=== PATIENT | male | born 1990 | race Caucasian/White ===

== ENCOUNTER 2017-11-01 21:16 | Emergency (ER) | payer OTHER ==
[2017-11-01 21:29] VITALS: RESP 18
[2017-11-01] MEDS ORDERED: ONDANSETRON 4 MG/2 ML VIAL IVP STA (21:44)
[2017-11-01] MEDS ORDERED: SODIUM CHLORIDE 0.9% 500 ML IV STA (21:44)
--- NOTE | 2017-11-01 21:50 | ED ---
Nausea/Vomiting/Diarrhea HPI - General Chief complaint: Nausea/Vomiting/Diarrhea Stated complaint: vomting/diarrhea Time Seen by Provider: 11/01/17 21:27 Source: patient Mode of arrival: ambulatory Limitations: no limitations - History of Present Illness MD complaint: nausea, vomiting, diarrhea -: hour(s) (This patient is a 27 year old man who presents with approximately 9 hours of nausea, vomiting, and diarrhea. The patient states that he was in his usual state of health yesterday and awoke feeling well. He does note that his had the onset of identical symptoms around 8 this morning. The patient did go to work but was called home by his , and then this afternoon started having similar symptoms to her. He denies fever or chills. He is not having abdominal pain area he has not noted any blood or coffee-ground material with the vomiting or with the bowel movements. He does state that he is feeling a touch lightheaded if he stands rapidly.) Description of Vomiting: food contents Description of Diarrhea: water Associated Abdominal Pain: No Improves with: none Worsens with: none Associated Symptoms: nausea/vomiting - Related Data Home Medications Medication Instructions Recorded Confirmed Acetaminophen [Tylenol] 650 mg PO Q6HR PRN 11/01/17 11/01/17 Divalproex [Depakote] 500 mg PO BID 11/01/17 11/01/17 Previous Rx's Medication Instructions Recorded Ondansetron Odt [Zofran ODT] 4 mg PO Q8HR PRN #10 tab 11/01/17 Allergies Allergy/AdvReac Type Severity Reaction Status Date / Time No Known Allergies Allergy Verified 11/01/17 21:50 Review of Systems ROS Statement: Those systems with pertinent positive or pertinent negative responses have been documented in the HPI. ROS Other: All systems not noted in ROS Statement are negative. Constitutional: Denies: fever, chills, weakness Respiratory: Denies: cough, dyspnea Cardiovascular: Denies: chest pain, palpitations, edema Gastrointestinal: Reports: nausea, vomiting, diarrhea. Denies: abdominal pain, constipation, melena, hematochezia Genitourinary: Denies: dysuria, hematuria Musculoskeletal: Denies: back pain Skin: Denies: rash Neurological: Denies: headache Past Medical History Past Medical History: Seizure Disorder History of Any Multi-Drug Resistant Organisms: None Reported Past Surgical History: No Surgical Hx Reported Past Psychological History: No Psychological Hx Reported Smoking Status: Never smoker Past Alcohol Use History: Occasional Past Drug Use History: None Reported General Exam Limitations: no limitations General appearance: alert, in no apparent distress Head exam: Present: atraumatic, normocephalic Eye exam: Present: normal appearance. Absent: scleral icterus, conjunctival injection ENT exam: Present: normal oropharynx Respiratory exam: Present: normal lung sounds bilaterally. Absent: respiratory distress, wheezes, rales, rhonchi, stridor Cardiovascular Exam: Present: normal rhythm, tachycardia (Rate is approximately 104 at my exam), normal heart sounds. Absent: systolic murmur, diastolic murmur , rubs, gallop GI/Abdominal exam: Present: soft. Absent: distended, tenderness, guarding, rebound, rigid, mass, pulsatile mass, hernia Extremities exam: Present: normal inspection, normal capillary refill. Absent: pedal edema, calf tenderness Back exam: Present: normal inspection. Absent: CVA tenderness (R), CVA tenderness (L) Skin exam: Present: warm, dry, intact, normal color. Absent: rash Course Vital Signs 11/01/17 11/01/17 11/01/17 21:27 21:53 22:27 Temperature 97.4 F L Pulse Rate 113 H 86 103 H Respiratory 18 18 18 Rate Blood Pressure 140/80 125/71 133/63 O2 Sat by Pulse 95 97 100 Oximetry Medical Decision Making - Lab Data Result diagrams: 11/01/17 21:40 11/01/17 21:40 Lab Results 11/01/17 11/01/17 Range/Units 21:40 21:40 WBC 16.8 H (3.8-10.6) k/uL RBC 6.14 H (4.30-5.90) m/uL Hgb 18.2 H (13.0-17.5) gm/dL Hct 52.8 (39.0-53.0) % MCV 86.0 (80.0-100.0) fL MCH 29.7 (25.0-35.0) pg MCHC 34.5 (31.0-37.0) g/dL RDW 12.1 (11.5-15.5) % Plt Count 237 (150-450) k/uL Neutrophils % 93 % Lymphocytes % 2 % Monocytes % 3 % Eosinophils % 1 % Basophils % 0 % Neutrophils # 15.5 H (1.3-7.7) k/uL Lymphocytes # 0.4 L (1.0-4.8) k/uL Monocytes # 0.5 (0-1.0) k/uL Eosinophils # 0.2 (0-0.7) k/uL Basophils # 0.1 (0-0.2) k/uL Sodium 143 (137-145) mmol/L Potassium 4.2 (3.5-5.1) mmol/L Chloride 106 (98-107) mmol/L Carbon Dioxide 18 L (22-30) mmol/L Anion Gap 19 mmol/L BUN 15 (9-20) mg/dL Creatinine 0.96 (0.66-1.25) mg/dL Est GFR (MDRD) Af Amer >60 (>60 ml/min/1.73 sqM) Est GFR (MDRD) Non-Af >60 (>60 ml/min/1.73 sqM) Glucose 135 H (74-99) mg/dL Calcium 10.6 H (8.4-10.2) mg/dL Total Bilirubin 1.1 (0.2-1.3) mg/dL AST 27 (17-59) U/L ALT 39 (21-72) U/L Alkaline Phosphatase 102 (38-126) U/L Total Protein 8.8 H (6.3-8.2) g/dL Albumin 5.3 H (3.5-5.0) g/dL Amylase 65 (30-110) U/L Lipase 64 (23-300) U/L Disposition Clinical Impression: Gastroenteritis Disposition: HOME SELF-CARE Condition: Good Instructions: Gastroenteritis (ED) Prescriptions: Ondansetron Odt [Zofran ODT] 4 mg PO Q8HR PRN #10 tab PRN Reason: Nausea Referrals: Rosales Grullon Jr, [Primary Care Provider] - 1-2 days
[2017-11-01 22:04] LABS: Basophils # (A) 0.1 k/uL (0-0.2); Basophils % (A) 0 %; Eosinophils # (A) 0.2 k/uL (0-0.7); Eosinophils % (A) 1 %; HCT 52.8 % (39.0-53.0); HGB 18.2 gm/dL (13.0-17.5); Lymphocytes # (A) 0.4 k/uL (1.0-4.8); Lymphocytes % (A) 2 %; MCH 29.7 pg (25.0-35.0); MCHC 34.5 g/dL (31.0-37.0); Mean Platelet Volume 8.8; Monocytes # (A) 0.5 k/uL (0-1.0); Monocytes % (A) 3 %; Neutrophils # (A) 15.5 k/uL (1.3-7.7); Neutrophils % (A) 93 %; Platelet Count 237 k/uL (150-450); RBC 6.14 m/uL (4.30-5.90); RDW 12.1 % (11.5-15.5); WBC 16.8 k/uL (3.8-10.6)
[2017-11-01 22:10] LABS: ALT 39 U/L (21-72); AST 27 U/L (17-59); Albumin 5.3 g/dL (3.5-5.0); Alkaline Phosphatase 102 U/L (38-126); Amylase 65 U/L (30-110); Anion Gap 19 mmol/L; Blood Urea Nitrogen 15 mg/dL (9-20); Calcium 10.6 mg/dL (8.4-10.2); Carbon Dioxide 18 mmol/L (22-30); Chloride 106 mmol/L (98-107); Glucose 135 mg/dL (74-99); Lipase 64 U/L (23-300); Potassium 4.2 mmol/L (3.5-5.1); Sodium 143 mmol/L (137-145); Total Bilirubin 1.1 mg/dL (0.2-1.3); Total Protein 8.8 g/dL (6.3-8.2)
[2017-11-01 22:27] VITALS: BP 133/63; PULSE 103
[2017-11-01 22:47] VITALS: TEMP 98.9
== END 2017-11-01 22:47 | disposition home or self-care (01) ==
LOC: EC 21:16
DX: K52.9 Noninfective gastroenteritis and colitis, unspecified (principal); G40.909 Epilepsy, unspecified, not intractable, without status epilepticus; Z79.899 Other long term (current) drug therapy
CPT/HCPCS: 36415; 80053; 82150; 83690; 85025; 99284; 96374; J2405

== ENCOUNTER 2017-11-27 20:53 | Emergency (ER) | payer OTHER ==
[2017-11-27 20:58] VITALS: BP 135/77; PULSE 98; TEMP 98.9
[2017-11-27 21:17] VITALS: RESP 20
--- NOTE | 2017-11-27 21:25 | ED ---
General Adult HPI - General Chief complaint: Upper Respiratory Infection Stated complaint: cough Time Seen by Provider: 11/27/17 21:01 Source: patient, RN notes reviewed Mode of arrival: ambulatory Limitations: no limitations - History of Present Illness Initial comments: Patient is a 27-year-old male who presents emergency room today with a chief complaint of Congestion over the last 3 days. He does admit that he was at the urgent care yesterday diagnosed with influenza. He states that he's been having increased cough congestion. Patient does admit that several coworkers have been sick with similar. He does admit that he had a fever yesterday fever seems to be better today. He denies any other complaints or symptoms. Patient denies any recent fever, chills, shortness of breath, chest pain, back pain, abdominal pain, nausea or vomiting, numbness or tingling, dysuria or hematuria, constipation or diarrhea, headaches or visual changes, or any other complaints. - Related Data Home Medications Medication Instructions Recorded Confirmed Divalproex [Depakote] 500 mg PO BID 11/01/17 11/01/17 Previous Rx's Medication Instructions Recorded Benzonatate [Tessalon Perles] 100 mg PO TID PRN #20 capsule 11/27/17 Allergies Allergy/AdvReac Type Severity Reaction Status Date / Time No Known Allergies Allergy Verified 11/27/17 20:58 Review of Systems ROS Statement: Those systems with pertinent positive or pertinent negative responses have been documented in the HPI. ROS Other: All systems not noted in ROS Statement are negative. Past Medical History Past Medical History: Seizure Disorder History of Any Multi-Drug Resistant Organisms: None Reported Past Surgical History: No Surgical Hx Reported Past Psychological History: No Psychological Hx Reported Smoking Status: Never smoker Past Alcohol Use History: Occasional Past Drug Use History: None Reported General Exam - General Exam Comments Initial Comments: General: The patient is awake and alert, in no distress, and does not appear acutely ill. Eye: Pupils are equal, round and reactive to light, extra-ocular movements are intact. No nystagmus. There is normal conjunctiva bilaterally. No signs of icterus. Ears, nose, mouth and throat: There are moist mucous membranes and no oral lesions. Mild redness to the posterior pharynx. Uvula midline. Patient swallows without difficult. Neck: The neck is supple, there is no tenderness or JVD. No meningismal signs. Cardiovascular: There is a regular rate and rhythm. No murmur, rub or gallop is appreciated. Respiratory: Lungs are clear to auscultation, respirations are non-labored, breath sounds are equal. No wheezes, stridor, rales, or rhonchi. Musculoskeletal: Normal ROM, no tenderness. Strength 5/5. Sensation intact. Pulses equal bilaterally 2+. Neurological: A&O x 3. CN II-XII intact, There are no obvious motor or sensory deficits. Coordination appears grossly intact. Speech is normal. Skin: Skin is warm and dry and no rashes or lesions are noted. Psychiatric: Cooperative, appropriate mood & affect, normal judgment. Limitations: no limitations Course Vital Signs 11/27/17 11/27/17 20:55 21:16 Temperature 98.9 F Pulse Rate 98 Respiratory 18 20 Rate Blood Pressure 135/77 O2 Sat by Pulse 100 Oximetry Medical Decision Making - Medical Decision Making Chest x-rays negative for any sign of pneumonia. Results were discussed with patient. He'll be given cough medication go home with. Patient was found from DrKathy return to emergency room if symptoms increase worsen. Disposition Clinical Impression: Influenza Disposition: HOME SELF-CARE Condition: Good Instructions: Influenza (ED) Additional Instructions: Please use medication as discussed. Please follow-up with family doctor in the next 2 days of symptoms have not improved. Please return to emergency room if the symptoms increase or worsen or for any other concerns. Prescriptions: Benzonatate [Tessalon Perles] 100 mg PO TID PRN #20 capsule PRN Reason: Cough Referrals: Rosales Grullon Jr, [Primary Care Provider] - 1-2 days Time of Disposition: 21:50
--- NOTE | 2017-11-27 21:30 | XR ---
EXAMINATION TYPE: XR chest 2V DATE OF EXAM: 11/27/2017 COMPARISON: Prior chest x-ray April 29, 2011. HISTORY: Cough. TECHNIQUE: Frontal and lateral views of the chest are obtained. FINDINGS: There is no focal air space opacity, pleural effusion, or pneumothorax seen. The cardiac silhouette size is within normal limits. The osseous structures are intact. IMPRESSION: No suspicious acute pulmonary process. No significant change from prior chest x-ray .
== END 2017-11-27 21:56 | disposition home or self-care (01) ==
LOC: EC 20:53
DX: J11.1 Influenza due to unidentified influenza virus with other respiratory manifestations (principal); G40.909 Epilepsy, unspecified, not intractable, without status epilepticus; Z79.899 Other long term (current) drug therapy
CPT/HCPCS: 71046; 99283

== ENCOUNTER 2019-04-21 02:19 | Emergency (ER) | payer OTHER ==
[2019-04-21 02:52] VITALS: PULSE 88; RESP 18
--- NOTE | 2019-04-21 03:10 | XR ---
EXAM: XR Chest, 2 Views CLINICAL HISTORY: ITS.REASON XR Reason: shortness of breath TECHNIQUE: Frontal and lateral views of the chest. COMPARISON: 11/27/17. FINDINGS: Lungs: Mild basilar opacities, possible atelectasis. No consolidation. Pleural space: No significant pleural effusion or pneumothorax. Heart: Unremarkable. Mediastinum: Unremarkable. Bones/joints: No acute fracture. IMPRESSION: No acute cardiopulmonary process.
--- NOTE | 2019-04-21 03:29 | ED ---
General Adult HPI - General Chief complaint: Upper Respiratory Infection Stated complaint: Cough/MIKHAIL Time Seen by Provider: 04/21/19 03:03 Source: patient Mode of arrival: ambulatory Limitations: no limitations - History of Present Illness Initial comments: Patient is a 28-year-old male presenting to emergency Department with a cough. Patient reports he developed mild sore throat and bilateral rhinorrhea on Wednesday. The symptoms resolved after 2 days. Patient reports earlier today he developed a dry cough followed by 2 episodes of posttussive emesis. Patient denies nausea or diarrhea. Patient denies fever, chills or night sweats. Patient reports the cough is exacerbated when laying supine and alleviated with sitting up. Patient does report mild shortness of breath but denies chest pain, chest tightness or chest palpitations. Patient denies sore throat, rhinorrhea, headache, fever. Patient is a smoker. Patient reports taking Robitussin and benzonate with minimal improvement. Patient denies abdominal or back pain. - Related Data Home Medications Medication Instructions Recorded Confirmed Divalproex [Depakote] 500 mg PO BID 11/01/17 11/01/17 Previous Rx's Medication Instructions Recorded Benzonatate [Tessalon Perles] 100 mg PO TID PRN #20 capsule 11/27/17 Albuterol Nebulized [Ventolin 2.5 mg INHALATION Q4H PRN #25 nebu 04/21/19 Nebulized] Allergies Allergy/AdvReac Type Severity Reaction Status Date / Time No Known Allergies Allergy Verified 11/27/17 20:58 Review of Systems ROS Statement: Those systems with pertinent positive or pertinent negative responses have been documented in the HPI. ROS Other: All systems not noted in ROS Statement are negative. Past Medical History Past Medical History: Seizure Disorder History of Any Multi-Drug Resistant Organisms: None Reported Past Surgical History: No Surgical Hx Reported Past Psychological History: No Psychological Hx Reported Smoking Status: Never smoker Past Alcohol Use History: Occasional Past Drug Use History: None Reported General Exam Limitations: no limitations General appearance: alert, in no apparent distress Head exam: Present: atraumatic, normocephalic, normal inspection Eye exam: Present: normal appearance, PERRL, EOMI Pupils: Present: normal accommodation ENT exam: Present: normal exam, mucous membranes moist, TM's normal bilaterally, normal external ear exam. Absent: normal oropharynx (Mild pharyngeal erythema. No enlarged tonsils or tonsillar exudates.) Neck exam: Present: normal inspection, full ROM. Absent: lymphadenopathy Respiratory exam: Present: normal lung sounds bilaterally. Absent: respiratory distress, wheezes, rales, rhonchi, stridor, chest wall tenderness Cardiovascular Exam: Present: regular rate, normal rhythm, normal heart sounds Extremities exam: Present: normal inspection, full ROM Back exam: Present: normal inspection, full ROM Neurological exam: Present: alert, oriented X3 Psychiatric exam: Present: normal affect, normal mood Skin exam: Present: warm, intact, normal color Course Vital Signs 04/21/19 02:49 Temperature 98.1 F Pulse Rate 88 Respiratory 18 Rate Blood Pressure 136/76 O2 Sat by Pulse 99 Oximetry Medical Decision Making - Medical Decision Making Patient is a 28-year-old male presenting to emergency Department for a cough. Chest x-ray is negative for acute cardio pulmonary pathology. Patient is afebrile. Based on history and physical examination I suspect the patient to develop acute bronchitis. Patient will be discharged with azithromycin based on watch and wait basis. Patient advised to take the medication if the symptoms do not resolve in 3 days. Patient will also be discharged with albuterol. She advised to follow-up with primary care. Strict return parameters were thoroughly discussed with patient who is understanding and agreeable. Case discussed physician. Disposition Clinical Impression: Bronchitis Disposition: HOME SELF-CARE Condition: Stable Instructions (If sedation given, give patient instructions): Upper Respiratory Infection (ED) Additional Instructions: Please take prescribed medication as directed. Please follow up primary care. Please return to emergency department if symptoms worsen. Is patient prescribed a controlled substance at d/c from ED?: No Referrals: Rosales Grullon Jr, DO [Primary Care Provider] - 1-2 days Time of Disposition: 03:31
[2019-04-21] MEDS ORDERED: DEXAMETHASONE SOD PHOSPHATE 4 MG/ML 1 ML VIAL IM STA (03:32)
[2019-04-21 04:15] VITALS: BP 136/80; TEMP 98.8
== END 2019-04-21 04:14 | disposition home or self-care (01) ==
LOC: EC 02:19
DX: J40 Bronchitis, not specified as acute or chronic (principal); G40.909 Epilepsy, unspecified, not intractable, without status epilepticus; F17.200 Nicotine dependence, unspecified, uncomplicated; Z79.899 Other long term (current) drug therapy
CPT/HCPCS: 71046; 99284; 96372; J1100

== ENCOUNTER 2024-04-27 17:43 | Emergency (ER) | payer OTHER ==
[2024-04-27 17:54] VITALS: TEMP 98.2
--- NOTE | 2024-04-27 18:32 | ED ---
Wound/Laceration HPI - General Chief Complaint: Wound/Laceration Stated Complaint: left hand injury Time Seen by Provider: 04/27/24 18:28 Source: patient, RN notes reviewed Mode of arrival: ambulatory Limitations: no limitations - History of Present Illness Initial Comments: 33-year-old male presenting with left third and fourth digit lacerations 1 hour ago. Patient states he accidentally cut himself with a hedgetrimmer. Denies any injuries. Last tetanus unknown. Denies blood thinners. - Related Data Home Medications Medication Instructions Recorded Confirmed Divalproex [Depakote] 500 mg PO BID 11/01/17 11/01/17 Previous Rx's Medication Instructions Recorded Benzonatate [Tessalon Perles] 100 mg PO TID PRN #20 capsule 11/27/17 Albuterol Nebulized [Ventolin 2.5 mg INHALATION Q4H PRN #25 nebu 04/21/19 Nebulized] Azithromycin [Zithromax Z-pack (6 0 mg PO DIRECTED #1 pack 04/21/19 tabs)] Cephalexin [Keflex] 500 mg PO Q12HR 5 Days #10 cap 04/27/24 Allergies Allergy/AdvReac Type Severity Reaction Status Date / Time No Known Allergies Allergy Verified 11/27/17 20:58 Review of Systems ROS Statement: Those systems with pertinent positive or pertinent negative responses have been documented in the HPI. ROS Other: All systems not noted in ROS Statement are negative. Past Medical History Past Medical History: Seizure Disorder History of Any Multi-Drug Resistant Organisms: None Reported Past Surgical History: No Surgical Hx Reported Past Psychological History: No Psychological Hx Reported Smoking Status: Former smoker Past Alcohol Use History: Occasional Past Drug Use History: None Reported General Exam Limitations: no limitations General appearance: alert, in no apparent distress Head exam: Present: atraumatic, normocephalic, normal inspection Left Forearm Wrist exam: Present: normal inspection, full ROM. Absent: tenderness, swelling Hand Wrist exam: Present: full ROM, tenderness (Mild tenderness to distal aspect of third digit), laceration (4 cm curved laceration present on distal aspect of third digit with minimal active bleeding, 2 cm superficial laceration present on distal aspect of fourth digit with no active bleeding). Absent: normal inspection, deformity Vascular: Present: normal capillary refill, radial pulse (Sensation intact in all digits). Absent: vascular compromise Neurological exam: Present: alert, oriented X3 Psychiatric exam: Present: normal affect, normal mood Skin exam: Present: warm, dry, intact, normal color. Absent: rash Course Vital Signs 04/27/24 17:52 Temperature 98.2 F Pulse Rate 86 Respiratory 16 Rate Blood Pressure 150/84 O2 Sat by Pulse 98 Oximetry Procedures - Laceration Laceration #1 Consent Obtained: verbal consent Indication: laceration Site: hand Size (cm): 4 Description: flap Depth: simple, single layer Anesthetic Used: lidocaine 1%, without epi Anesthesia Technique: local infiltration Amount (mls): 3 Pre-repair: wound explored, irrigated extensively, deep structures intact Type of Sutures: nylon Size of Sutures: 4-0 Number of Sutures: 4 Technique: simple, interrupted Patient Tolerated Procedure: well, no complications Additional Comments: Neurovascularly intact status postprocedure Laceration #2 Consent Obtained: verbal consent Indication: laceration Site: hand Size (cm): 2 Description: linear Depth: simple, single layer Pre-repair: wound explored, irrigated extensively, deep structures intact Patient Tolerated Procedure: well, no complications Additional Comments: Skin adhesive applied and hemostasis achieved. Neurovascularly intact status postprocedure Medical Decision Making - Medical Decision Making Was pt. sent in by a medical professional or institution (, PA, UTILIZATION MANAGER, urgent care, hospital, or custodial...) When possible be specific @ -No Did you speak to anyone other than the patient for history (EMS, parent, family, police, friend...)? What history was obtained from this source @ -No Did you review nursing and triage notes (agree or disagree)? Why? @ -I reviewed and agree with nursing and triage notes Were old charts reviewed (outside hosp., previous admission, EMS record, old EKG, old radiological studies, urgent care reports/EKG's, custodial records)? Report findings @ -No old charts were reviewed Differential Diagnosis (chest pain, altered mental status, abdominal pain women, abdominal pain men, vaginal bleeding, weakness, fever, dyspnea, syncope, headache, dizziness, GI bleed, back pain, seizure, CVA, palpatations, mental health, musculoskeletal)? @ -Differential Musculoskeletal Muscular strain, contusion, ligament sprain, fracture, arthritis, septic arthritis, bursitis, cellulitis, muscle spasm, nerve compression, DVT, arterial occlusion, herpes zoster, electrolyte abnormality, tumor.... This is not meant to be in all inclusive list EKG interpreted by me (3pts min.). @ -None X-rays interpreted by me (1pt min.). @ -X-ray of the left hand reveals no acute fracture CT interpreted by me (1pt min.). @ -None done U/S interpreted by me (1pt. min.). @ -None done What testing was considered but not performed or refused? (CT, X-rays, U/S, labs)? Why? @ -None What meds were considered but not given or refused? Why? @ -None Did you discuss the management of the patient with other professionals (professionals i.e. , PA, UTILIZATION MANAGER, lab, RT, psych nurse, director social service, cryogenics repairer, te acher, adult probation officer, case assembler)? Give summary @ -No Was smoking cessation discussed for >3mins.? @ -No Was critical care preformed (if so, how long)? @ -No Were there social determinants of health that impacted care today? How? (Homelessness, low income, unemployed, alcoholism, drug addiction, transportation, low edu. Level, literacy, decrease access to med. care, residential, rehab)? @ -No Was there de-escalation of care discussed even if they declined (Discuss DNR or withdrawal of care, Hospice)? DNR status @ -No What co-morbidities impacted this encounter? (DM, HTN, Smoking, COPD, CAD, Cancer, CVA, ARF, Chemo, Hep., AIDS, mental health diagnosis, sleep apnea, morbid obesity)? @ -None Was patient admitted / discharged? Hospital course, mention meds given and route, prescriptions, significant lab abnormalities, going to OR and other pertinent info. @ -Patient was discharged. Patient was seen and evaluated for laceration of left hand 1 hour prior to arrival due to seat covers trimmer injury. Patient is neurovascularly intact. X-ray reveals no acute fracture. Tetanus was updated. Wound was thoroughly irrigated, 4 sutures placed to third digit, skin adhesive applied to fourth digit. Neurovascularly intact status postprocedure. Wound care discussed. Prescribed Keflex for antibacterial prophylaxis. Advised to follow-up in 7 days for suture removal. Return parameters discussed and patient is agreeable to plan. Case was discussed with my attending Dr. Vaughan. Patient discharged in stable condition. Undiagnosed new problem with uncertain prognosis? @ -No Drug Therapy requiring intensive monitoring for toxicity (Heparin, Nitro, Insulin, Cardizem)? @ -No Were any procedures done? @ -4 sutures placed to laceration Diagnosis/symptom? @ -Laceration of left hand Acute, or Chronic, or Acute on Chronic? @ -Acute Uncomplicated (without systemic symptoms) or Complicated (systemic symptoms)? @ -Uncomplicated Side effects of treatment? @ -No Exacerbation, Progression, or Severe Exacerbation? @ -No Poses a threat to life or bodily function? How? (Chest pain, [place], [place], pneumonia, PE, COPD, DKA, ARF, appy, cholecystitis, CVA, Diverticulitis, Homicidal, Suicidal, threat to staff... and all critical care pts) @ -No Disposition Clinical Impression: Laceration of finger of left hand Disposition: HOME SELF-CARE Condition: Stable Instructions (If sedation given, give patient instructions): Finger Laceration (ED) Additional Instructions: Follow-up in 7 days for suture removal. Apply bacitracin or Neosporin to affected area. Take antibiotics as prescribed. Keep wound covered. Please return to the Emergency Department if symptoms worsen or any other concerns. Prescriptions: Cephalexin [Keflex] 500 mg PO Q12HR 5 Days #10 cap Is patient prescribed a controlled substance at d/c from ED?: No Referrals: Rosales Grullon Jr, DO [Primary Care Provider] - 1-2 days Time of Disposition: 20:54
[2024-04-27] MEDS: LIDOCAINE 1% INJ 10MG/ML (20 ML MDV) SQ ONE (18:33)
[2024-04-27] MEDS: DIPH,PERTUS(ACELL)TETVAC-LF 0.5 ML VIAL IM ONE (18:33)
--- NOTE | 2024-04-27 18:48 | XR ---
EXAMINATION TYPE: XR hand complete LT DATE OF EXAM: 04/27/2024 CLINICAL HISTORY: pain TECHNIQUE: Frontal, lateral and oblique images of the left hand are obtained. COMPARISON: None. FINDINGS: There is no acute fracture/dislocation evident. The joint spaces appear within normal limi ts. The overlying soft tissue appears unremarkable. IMPRESSION: There is no acute fracture or dislocation. ICD 10 NO FRACTURE, INITIAL EVALUATION
[2024-04-27 21:06] VITALS: BP 133/91; PULSE 96; RESP 18
== END 2024-04-27 21:06 | disposition home or self-care (01) ==
LOC: EC 17:43
DX: S61.412A Laceration without foreign body of left hand, initial encounter (principal); Z87.891 Personal history of nicotine dependence; Z23 Encounter for immunization; W26.9XXA Contact with unspecified sharp object(s), initial encounter
CPT/HCPCS: 73130; 90715; 99283; 90471; 12002; J2001

== ENCOUNTER → 2024-06-22 | Outpatient (CLI) | payer OTHER ==
[2024-06-22 15:14] LABS: ALT 26 U/L (10-49); AST 25 U/L (14-35); Albumin 4.5 g/dL (3.8-4.9); Albumin/Globulin Ratio 1.73 Ratio (1.60-3.17); Alkaline Phosphatase 60 U/L (41-126); Blood Urea Nitrogen 8.8 mg/dL (9.0-27.0); Calcium 9.4 mg/dL (8.7-10.3); Chloride 103 mmol/L (96-109); Chol/HDL Ratio 4.27 Ratio; Globulin 2.6 g/dL (1.6-3.3); Glucose 104 mg/dL (70-110); LDL Cholesterol,Calculated 131.6 mg/dL (0.0-131.0); Potassium 4.2 mmol/L (3.5-5.5); Sodium 138 mmol/L (135-145); Total Bilirubin 0.7 mg/dL (0.3-1.2); Total Protein 7.1 g/dL (6.2-8.2); VLDL Calculation 16.98 mg/dL (5.00-40.00)
[2024-06-22 15:30] LABS: Basophils # (A) 0.05 X 10*3/uL (0.00-0.10); Basophils % (A) 1.1 %; Eosinophils # (A) 0.15 X 10*3/uL (0.04-0.35); Eosinophils % (A) 3.2 %; HCT 45.1 % (39.6-50.0); HGB 15.4 g/dL (13.0-17.0); Lymphocytes # (A) 1.89 X 10*3/uL (0.90-5.00); Lymphocytes % (A) 40.8 %; MCH 30.4 pg (27.0-32.0); MCHC 34.1 g/dL (32.0-37.0); MCV 89.1 FL (80.0-97.0); Mean Platelet Volume 12.3 FL (9.5-12.2); Monocytes % (A) 10.8 %; NRBC Per 100 WBC 0 X 10*3/uL (0.00-0.01); Neutrophils # (A) 2.03 X 10*3/uL (1.80-7.70); Neutrophils % (A) 43.9 %; Platelet Count 208 X 10*3/uL (140-440); RBC 5.06 X 10*6/uL (4.40-5.60); WBC 4.63 X 10*3/uL (4.50-10.00)
== END | disposition home or self-care (01) ==
LOC: LABWHC1 09:18
PROVIDERS: ATTEND Family Medicine
DX: Z00.00 Encounter for general adult medical examination without abnormal findings (principal)
CPT/HCPCS: 36415; 80053; 80061; 85025